=== PATIENT | female | born 1960 | race Two or more races ===

== ENCOUNTER 2016-10-02 10:42 | Emergency (ER) | payer MEDICAID ==
[~2016-10-02] VITALS: Ht 149.9 cm; Wt 72.6 kg
[2016-10-02 13:51] VITALS: BP 118/75
== END 2016-10-02 14:00 | disposition home or self-care (01) ==
LOC: ER 10:48
DX: S63.501A Unspecified sprain of right wrist, initial encounter (principal); X58.XXXA Exposure to other specified factors, initial encounter; Y93.89 Activity, other specified; Y99.8 Other external cause status; Y92.89 Other specified places as the place of occurrence of the external cause
CPT/HCPCS: 73110; 73130

== ENCOUNTER 2017-09-21 13:08 | Emergency (ER) | payer MEDICAID ==
[~2017-09-21] VITALS: Ht 149.9 cm; Wt 59.0 kg
[2017-09-21 13:40] VITALS: BP 121/76
== END 2017-09-21 14:28 | disposition home or self-care (01) ==
LOC: ER 13:08
DX: S62.604A Fracture of unspecified phalanx of right ring finger, initial encounter for closed fracture (principal); S62.606A Fracture of unspecified phalanx of right little finger, initial encounter for closed fracture; W19.XXXA Unspecified fall, initial encounter; Y93.89 Activity, other specified; Y92.89 Other specified places as the place of occurrence of the external cause; Y99.8 Other external cause status
CPT/HCPCS: 29125